=== PATIENT | female | born 1930 | race Caucasian/White ===

== ENCOUNTER 2017-11-09 18:15 | Observation (INO) | payer OTHER, BC ==
--- NOTE | 2017-11-09 19:20 | EDPHY ---
H & P Time Seen by Provider: 11/09/17 19:19 HPI/ROS: CHIEF COMPLAINT: Headache HISTORY OF PRESENT ILLNESS: The patient is had a headache for 10 days and this is her 3rd emergency department visit. She was most recently admitted at [facility] according to the daughters on Monday night discharge Monday. She had a negative head CT but a slightly elevated CRP and sedimentation rate. The she got occipital nerve block which helped for a short while but now she has an 11/10 headache today and was screaming and severe pain at home. The headache is on the left parietal area and severe does not radiate. Not associated with fever or stiff neck. Is associated with photophobia and nausea and worse with light. Also worse with any movement. REVIEW OF SYSTEMS: Eye: no change in vision or double vision ENT: no sore throat or earache Cardiac: no chest pain or syncope Pulmonary: Little bit of a cough but no shortness of breath Abdomen: Nausea but no vomiting or diarrhea Musculoskeletal: Chronic back pain but no neck pain Skin: no rash Neuro: HPI Constitutional: no fever : no urinary symptoms A comprehensive 10 point review of systems is otherwise negative aside from elements mentioned in the history of present illness. PAST MEDICAL HISTORY: Hysterectomy and colon cancer Social history: Here with her 2 daughters who are visiting from out of town staying at a hotel General Appearance: Alert and conversant, cooperative. Eyes: No scleral icterus. Pupils equal and reactive extraocular motion intact. She does not have any temporal artery or forehead tenderness to palpation. ENT, Mouth: Normal mucous membranes. Normal tympanic membranes and normal pharynx. Respiratory: Normal respiratory effort, breath sounds equal, lungs are clear to auscultation. Cardiovascular: Regular rate and rhythm. Gastrointestinal: Abdomen is soft and non tender. Neurological: Alert, face symmetric, normal motor and sensory in extremities. Skin: Warm and dry, no rashes. Musculoskeletal: She does not have any neck stiffness. Psychiatric: Not agitated. Emergency Department course/MDM: Saturation noted low at 85% but the patient does not really have any respiratory symptoms except for mild cough. Plan to treat her headache with Reglan 10 mg IV and Benadryl 25 mg IV and dexamethasone 10 mg IV. I-STAT will consider nonsteroidals if normal creatinine. Head CT and CT angiography of the head and neck, lumbar puncture discussed and consented. I do not see any evidence of zoster. Chest x-ray and CBC and chemistry. Daughters relate elevated CRP and sed rate but the patient does not have tenderness on her temples, I think clinically temporal arteritis would be unlikely. No visual symptoms. 2114: LP unsuccessful. She does not have meningeal signs. Think this can safely be deferred till tomorrow. Recommended admission for intractable recurrent headache, possible neurology consultation. At this time her headache is improved but not gone. Smoking Status: Never smoked Constitutional: Initial Vital Signs Temperature (C) 36.6 C 11/09/17 18:28 Heart Rate 92 11/09/17 18:28 Respiratory Rate 18 11/09/17 18:28 Blood Pressure 120/85 H 11/09/17 18:28 O2 Sat (%) 85 L 11/09/17 18:28 O2 Delivery Mode Nasal Cannula O2 (L/minute) 2 Allergies/Adverse Reactions: No Known Allergies Allergy (Verified 11/09/17 18:27) Home Medications: Medication Instructions Recorded Acetaminophen [Tylenol ES 500 mg 500 - 1,000 mg PO Q6 PRN 11/09/17 (*)] Aspirin [Aspirin 81mg (*)] 81 mg PO DAILY PRN 11/09/17 Medical Decision Making - Diagnostics Imaging Results: Imaging Impressions Chest X-Ray 11/09/17 19:43 Impression: Possibly a small posterior infiltrate with adjacent tiny pleural effusion. Results discussed with Dr. Tex Lizama at 8:[address] 11/09/17 20:02 Impression: No source for left parietal headache identified. A message was left for Dr. Lizama at 8:54 PM General information for patients regarding this examination can be found at [email or web address]. If you have questions or comments about this report, please contact me at (hospital) or [phone] (cell). Head CTA 11/09/17 20:02 Impression: Normal CT angiogram of the brain. 2. CT Angiography of the Neck (With Contrast) Clinical Indications: Severe left parietal headache x10 days, worsening Technique: During IV administration of 85 mL of Isovue-370 intravenously, helical multidetector data acquisition was obtained from the upper thorax cephalad through the skull base. The thinly collimated data were manipulated in multiple projections on the 3D computer workstation by the radiologist. Dose reduction techniques were utilized. Findings: Carotid bifurcations are widely patent. Both vertebral arteries are open, the left is dominant, and both are patent to the normal basilar artery. No evidence of occlusion, dissection, hemodynamically significant stenosis, or ulceration. There are tiny bilateral carotid bifurcation calcified plaques. Incidentally noted is degenerative disk disease between C3 and C6. Impression: Normal. Note: All stenoses are calculated using NASCET Criteria. Results called and discussed with Dr. Burton, at 11/09/2017 21:42 General information for patients regarding this examination can be found at [employer]. If you have questions or comments about this report, please contact me at (hospital) or [phone] (cell). Neck CTA 11/09/17 20:02 Impression: Normal CT angiogram of the brain. 2. CT Angiography of the Neck (With Contrast) Clinical Indications: Severe left parietal headache x10 days, worsening Technique: During IV administration of 85 mL of Isovue-370 intravenously, helical multidetector data acquisition was obtained from the upper thorax cephalad through the skull base. The thinly collimated data were manipulated in multiple projections on the 3D computer workstation by the radiologist. Dose reduction techniques were utilized. Findings: Carotid bifurcations are widely patent. Both vertebral arteries are open, the left is dominant, and both are patent to the normal basilar artery. No evidence of occlusion, dissection, hemodynamically significant stenosis, or ulceration. There are tiny bilateral carotid bifurcation calcified plaques. Incidentally noted is degenerative disk disease between C3 and C6. Impression: Normal. Note: All stenoses are calculated using NASCET Criteria. Results called and discussed with Dr. Burton, at 11/09/2017 21:42 General information for patients regarding this examination can be found at [employer]. If you have questions or comments about this report, please contact me at [phone](hospital) or [phone] (cell). Chest x-ray personally interpreted 1999 shows some interstitial markings but no CHF or infiltrates. Possible infiltrate laterally per Rasheed at 2010. Imaging: Discussed imaging studies w/ secretary of police Radiologist, I viewed and interpreted images myself Procedures: Procedure: Lumbar puncture attempt Indication: headache Risks benefits and alternatives to the procedure were discussed including but not limited to infection, headache, bleeding, and neurologic damage. Consent was obtained. The patient was prepped and draped in the usual sterile fashion. A time out was completed. The entry site was anesthetized with 1% lidocaine and a lumbar puncture was attempted with a 23-gauge spinal needle. Procedure was not successful, no CSF was obtained. There were no complications. The procedure was performed by myself. Differential Diagnosis: Differential diagnosis considered for headache including but not limited to subarachnoid hemorrhage, migraine headache, tension headache and infectious causes such as meningitis, pharyngitis and sinusitis. Consult/Admit Bed Type: [place] [address] - Data Points Laboratory Results: Laboratory Results 11/09/17 19:50 11/09/17 19:50 11/09/17 11/09/17 11/09/17 19:57 19:50 19:50 WBC 7.40 10^3/uL 10^3/uL (3.80-9.50) RBC 3.92 10^6/uL L 10^6/uL (4.18-5.33) Hgb 12.7 g/dL g/dL (12.6-16.3) POC Hgb 12.2 gm/dL L gm/dL (12.6-16.3) Hct 38.2 % % (38.0-47.0) POC Hct 36 % L % (38-47) MCV 97.4 fL fL (81.5-99.8) MCH 32.4 pg pg (27.9-34.1) MCHC 33.2 g/dL g/dL (32.4-36.7) RDW 13.3 % % (11.5-15.2) Plt Count 374 10^3/uL 10^3/uL (150-400) MPV 8.8 fL fL (8.7-11.7) Neut % (Auto) 72.1 % % (39.3-74.2) Lymph % (Auto) 14.1 % L % (15.0-45.0) [place] % (Auto) 9.6 % % (4.5-13.0) Eos % (Auto) 2.3 % % (0.6-7.6) Baso % (Auto) 0.4 % % (0.3-1.7) Nucleat RBC Rel Count 0.0 % % (0.0-0.2) Absolute Neuts (auto) 5.34 10^3/uL 10^3/uL (1.70-6.50) Absolute Lymphs (auto) 1.04 10^3/uL 10^3/uL (1.00-3.00) Absolute Monos (auto) 0.71 10^3/uL 10^3/uL (0.30-0.80) Absolute Eos (auto) 0.17 10^3/uL 10^3/uL (0.03-0.40) Absolute Basos (auto) 0.03 10^3/uL 10^3/uL (0.02-0.10) Absolute Nucleated RBC 0.00 10^3/uL 10^3/uL (0-0.01) Immature Gran % 1.5 % H % (0.0-1.1) Immature Gran # 0.11 10^3/uL H 10^3/uL (0.00-0.10) POC Sodium 142 mEq/L mEq/L (135-145) Sodium 140 mEq/L mEq/L (135-145) POC Potassium 3.7 mEq/L mEq/L (3.3-5.0) Potassium 3.9 mEq/L mEq/L (3.3-5.0) POC Chloride 107 mEq/L mEq/L (97-110) Chloride 107 mEq/L mEq/L (97-110) Carbon Dioxide 23 mEq/l mEq/l (22-31) Anion Gap 10 mEq/L mEq/L (8-16) POC BUN 20 mg/dL mg/dL (7-23) BUN 20 mg/dL mg/dL (7-23) Creatinine 0.7 mg/dL mg/dL (0.6-1.0) POC Creatinine 0.7 mg/dL mg/dL (0.6-1.0) Estimated GFR > 60 Glucose 109 mg/dL H mg/dL (70-100) POC Glucose 117 mg/dL H mg/dL (70-100) Calcium 9.6 mg/dL mg/dL (8.5-10.4) Medications Given: Discontinued Medications Dexamethasone (Decadron Injection) 10 mg IVP EDNOW ONE Stop: 11/09/17 19:42 Last Admin: 11/09/17 20:02 Dose: 10 mg Diphenhydramine HCl (Benadryl Injection) 25 mg IVP EDNOW ONE Stop: 11/09/17 19:42 Last Admin: 11/09/17 20:02 Dose: 25 mg Metoclopramide HCl (Reglan Injection) 10 mg IVP EDNOW ONE Stop: 11/09/17 19:41 Last Admin: 11/09/17 20:02 Dose: 10 mg Point of Care Test Results: Chemistry 11/09/17 19:57 POC Sodium 142 mEq/L mEq/L (135-145) POC Potassium 3.7 mEq/L mEq/L (3.3-5.0) POC Chloride 107 mEq/L mEq/L (97-110) POC BUN 20 mg/dL mg/dL (7-23) POC Creatinine 0.7 mg/dL mg/dL (0.6-1.0) POC Glucose 117 mg/dL H mg/dL (70-100) ISTAT H&H 11/09/17 19:57 POC Hgb 12.2 gm/dL L gm/dL (12.6-16.3) POC Hct 36 % L % (38-47) Departure - Departure Disposition: [facility] Acute Clinical Impression: Acute headache Qualifiers: Headache type: unspecified Intractability: intractable Qualified Code(s): R51 - Headache Condition: Good
[2017-11-09] MEDS ORDERED: METOCLOPRAMIDE 10 MG/2 ML VIAL IVP ONE (19:40)
[2017-11-09] MEDS ORDERED: DEXAMETHASONE 10 MG/ML VIAL IVP ONE (19:41)
[2017-11-09 20:11] LABS: PLATELET COUNT 374 10^3/uL (150-400)
[2017-11-09] MEDS ORDERED: IOPAMIDOL (ISOVUE 370) 100 ML BTL IV ONE (20:23)
[2017-11-09] MEDS ORDERED: ONDANSETRON DISINTEGRATING 4 MG TAB PO PRN (21:20)
[2017-11-09] MEDS ORDERED: ONDANSETRON 4 MG/2 ML VIAL IVP PRN (21:20)
[2017-11-09] MEDS ORDERED: ACETAMINOPHEN 325 MG TAB PO PRN (21:20)
--- NOTE | 2017-11-10 01:23 | PDGENHP ---
History and Physical - Chief Complaint Headache - History of Present Illness 87 yo F w/ minimal PMHx presents with AMAYA. Patient has had ongoing headache issues for about 10 days. This is her 3rd ER visit for the same and she was recently admitted to [facility] for treatment of the same. Per family's report she had a normal CT scan of the head while there but they did find elevated ESR/CRP. She came in to the ED complaining of 11/10 AMAYA in the L parietal area with nausea and photophobia. At the time of my evaluation patient is pain free after dexamethasone, Benadryl, and Reglan. She denies visual symptoms, jaw claudication, or any other neurologic symptoms. She denies prior hx of migraine headaches. Case discussed with Dr. Pimentel, previous records reviewed. History Information - Allergies/Home Medication List Allergies/Adverse Reactions: No Known Allergies Allergy (Verified 11/09/17 18:27) Home Medications: Acetaminophen [Tylenol ES 500 mg (*)] 500 - 1,000 mg PO Q6 PRN 11/09/17 [Last Taken 11/09/17 12:00] Aspirin [Aspirin 81mg (*)] 81 mg PO DAILY PRN 11/09/17 [Last Taken 11/09/17 19: 00] I have personally reviewed and updated: family history, medical history - Past Medical History cancer (Colon cancer) - Surgical History Reports: colectomy - Family History Additional family history: Denies family hx of migraines - Social History Smoking Status: Never smoked Review of Systems Review of Systems: ROS: 10pt was reviewed & negative except for what was stated in HPI & below Physical Exam Physical Exam: Temp Pulse Resp BP Pulse Ox 36.9 C 72 16 117/87 H 91 L 11/09/17 22:18 11/09/17 22:18 11/09/17 22:18 11/09/17 22:18 11/09/17 22:18 O2 (L/minute) 2 Constitutional: no apparent distress, not in pain Eyes: PERRL, EOMI Ears, Nose, Mouth, Throat: moist mucous membranes, no oral mucosal ulcers Cardiovascular: regular rate and rhythym, no murmur, rub, or gallop Respiratory: no respiratory distress, clear to auscultation Gastrointestinal: normoactive bowel sounds, soft, non-tender abdomen Skin: warm, normal color Musculoskeletal: full muscle strength, no muscle tenderness Neurologic: AAOx3, CN II-XII Intact Psychiatric: interacting appropriately, not anxious Lab Data & Imaging Review 11/09/17 19:50 11/09/17 19:50 WBC 7.40 10^3/uL (3.80-9.50) 11/09/17 19:50 RBC 3.92 10^6/uL (4.18-5.33) L 11/09/17 19:50 Hgb 12.7 g/dL (12.6-16.3) 11/09/17 19:50 POC Hgb 12.2 gm/dL (12.6-16.3) L 11/09/17 19:57 Hct 38.2 % (38.0-47.0) 11/09/17 19:50 POC Hct 36 % (38-47) L 11/09/17 19:57 MCV 97.4 fL (81.5-99.8) 11/09/17 19:50 MCH 32.4 pg (27.9-34.1) 11/09/17 19:50 MCHC 33.2 g/dL (32.4-36.7) 11/09/17 19:50 RDW 13.3 % (11.5-15.2) 11/09/17 19:50 Plt Count 374 10^3/uL (150-400) 11/09/17 19:50 MPV 8.8 fL (8.7-11.7) 11/09/17 19:50 Neut % (Auto) 72.1 % (39.3-74.2) 11/09/17 19:50 Lymph % (Auto) 14.1 % (15.0-45.0) L 11/09/17 19:50 [place] % (Auto) 9.6 % (4.5-13.0) 11/09/17 19:50 Eos % (Auto) 2.3 % (0.6-7.6) 11/09/17 19:50 Baso % (Auto) 0.4 % (0.3-1.7) 11/09/17 19:50 Nucleat RBC Rel Count 0.0 % (0.0-0.2) 11/09/17 19:50 Absolute Neuts (auto) 5.34 10^3/uL (1.70-6.50) 11/09/17 19:50 Absolute Lymphs (auto) 1.04 10^3/uL (1.00-3.00) 11/09/17 19:50 Absolute Monos (auto) 0.71 10^3/uL (0.30-0.80) 11/09/17 19:50 Absolute Eos (auto) 0.17 10^3/uL (0.03-0.40) 11/09/17 19:50 Absolute Basos (auto) 0.03 10^3/uL (0.02-0.10) 11/09/17 19:50 Absolute Nucleated RBC 0.00 10^3/uL (0-0.01) 11/09/17 19:50 Immature Gran % 1.5 % (0.0-1.1) H 11/09/17 19:50 Immature Gran # 0.11 10^3/uL (0.00-0.10) H 11/09/17 19:50 POC Sodium 142 mEq/L (135-145) 11/09/17 19:57 Sodium 140 mEq/L (135-145) 11/09/17 19:50 POC Potassium 3.7 mEq/L (3.3-5.0) 11/09/17 19:57 Potassium 3.9 mEq/L (3.3-5.0) 11/09/17 19:50 POC Chloride 107 mEq/L (97-110) 11/09/17 19:57 Chloride 107 mEq/L (97-110) 11/09/17 19:50 Carbon Dioxide 23 mEq/l (22-31) 11/09/17 19:50 Anion Gap 10 mEq/L (8-16) 11/09/17 19:50 POC BUN 20 mg/dL (7-23) 11/09/17 19:57 BUN 20 mg/dL (7-23) 11/09/17 19:50 Creatinine 0.7 mg/dL (0.6-1.0) 11/09/17 19:50 POC Creatinine 0.7 mg/dL (0.6-1.0) 11/09/17 19:57 Estimated GFR > 60 11/09/17 19:50 Glucose 109 mg/dL (70-100) H 11/09/17 19:50 POC Glucose 117 mg/dL (70-100) H 11/09/17 19:57 Calcium 9.6 mg/dL (8.5-10.4) 11/09/17 19:50 Imaging Review: Imaging Impressions Chest X-Ray 11/09/17 19:43 Impression: Possibly a small posterior infiltrate with adjacent tiny pleural effusion. Results discussed with Dr. Tex Lizama at 8:[address] 11/09/17 20:02 Impression: No source for left parietal headache identified. A message was left for Dr. Lizama at 8:54 PM General information for patients regarding this examination can be found at [employer]. If you have questions or comments about this report, please contact me at (hospital) or [phone] (cell). Head CTA 11/09/17 20:02 Impression: Normal CT angiogram of the brain. 2. CT Angiography of the Neck (With Contrast) Clinical Indications: Severe left parietal headache x10 days, worsening Technique: During IV administration of 85 mL of Isovue-370 intravenously, helical multidetector data acquisition was obtained from the upper thorax cephalad through the skull base. The thinly collimated data were manipulated in multiple projections on the 3D computer workstation by the radiologist. Dose reduction techniques were utilized. Findings: Carotid bifurcations are widely patent. Both vertebral arteries are open, the left is dominant, and both are patent to the normal basilar artery. No evidence of occlusion, dissection, hemodynamically significant stenosis, or ulceration. There are tiny bilateral carotid bifurcation calcified plaques. Incidentally noted is degenerative disk disease between C3 and C6. Impression: Normal. Note: All stenoses are calculated using NASCET Criteria. Results called and discussed with Dr. Burton, at 11/09/2017 21:42 General information for patients regarding this examination can be found at [employer]. If you have questions or comments about this report, please contact me at (hospital) or [phone] (cell). Neck CTA 11/09/17 20:02 Impression: Normal CT angiogram of the brain. 2. CT Angiography of the Neck (With Contrast) Clinical Indications: Severe left parietal headache x10 days, worsening Technique: During IV administration of 85 mL of Isovue-370 intravenously, helical multidetector data acquisition was obtained from the upper thorax cephalad through the skull base. The thinly collimated data were manipulated in multiple projections on the 3D computer workstation by the radiologist. Dose reduction techniques were utilized. Findings: Carotid bifurcations are widely patent. Both vertebral arteries are open, the left is dominant, and both are patent to the normal basilar artery. No evidence of occlusion, dissection, hemodynamically significant stenosis, or ulceration. There are tiny bilateral carotid bifurcation calcified plaques. Incidentally noted is degenerative disk disease between C3 and C6. Impression: Normal. Note: All stenoses are calculated using NASCET Criteria. Results called and discussed with Dr. Burton, at 11/09/2017 21:42 General information for patients regarding this examination can be found at [email or web address]. If you have questions or comments about this report, please contact me at (hospital) or [phone] (cell). Visualized and Interpreted Chest x-ray results: Yes Chest X-Ray results: other (Possible small posterior infiltrate) Assessment & Plan Assessment: 87 yo F p/w recurrent headache. Plan: 1. Headache - Unclear etiology; does have some migraine features noting duration , photophobia, and associated nausea. This is her 3rd ER visit and 2nd hospitalization for the same over the last [address] Head and CTA Head/Neck performed in the ED did not show any abnormalities that could explain the pain. She denies any infectious symptoms or neck stiffness. She denies visual disturbance and jaw claudication. - Admit for observation - Neurology consult placed - Will defer LP for now noting patient has no infectious symptoms currently - Will check ESR to screen for temporal cell arteritis (ESR commonly >100 with this) Diet - Regular Code - Full Ppx - SCDs Dispo - Admit under observation status
[2017-11-10 08:12] VITALS: BP 117/78
--- NOTE | 2017-11-10 09:51 | NEUROPROG ---
Assessment: HOSPITAL NEUROLOGY CONSULT REQUESTING: Errol Lazcano MD REASON: headache HPI: 87 year old woman with a history of dementia, remote colon cancer s/p colectomy , chronic low back pain presented to our ED yesterday with a reported headache. History is mainly obtained from records review, as patient is not complaining of a headache today and denies ever having a headache in the past. She has reportedly been experiencing episodic HAs since 11/01 manifest as left occipitoparietal sharp pains. She went to [facility] ED on 11/[address] head/CT head/neck. She was given IV narcotic analgesic with reported resolution of her AMAYA and discharged home. She represented to their ED on 11/07 with similar complaints. An occipital nerve block was done with varying reports of effectiveness. Labs were obtained indicating elevated ESR ( 40) and CRP (163). Exam did reveal focal tenderness over the left occipital region. Given the focal nature reproduced with tenderness, not further investigation was explored including LP and temporal artery biopsy. Headache had improved and she was discharged. However, she presented to our ED yesterday reportedly because she was screaming in pain at home from her headache. There was report of photophobia, nausea, worsening headache with head movement. Patient was evaluated again with CT head and CTA head/neck, which were again unremarkable for an acute/evolving process. She was given dexamethasone, metoclopramide and diphenhydramine and the headache resolved. She has not experienced any pain overnight per nursing report, slept well and has required no analgesics since her ER stay. ESR and CRP were rechecked and remain elevated. This morning on my interview she reports no pain. She thinks she is here for an epidural injection for her low back. She tells me she has never experienced head pain. She states she thinks she may be here because she's trying to move to "an old folks home" in [place] - she reports getting into an argument with her boyfriend and he does not want her back at home (note this was reported at [facility] as well). She denies any jaw claudication, fevers, joint pain, rashes, joint stiffness, fatigue (no prior reports with prior visits to outside hospitals of this either) . ROS: As per the HPI, otherwise a complete 12 point ROS was performed and is negative ALLERGIES AND MEDS: As recorded in the EMR - reviewed and reconciled PFSH: As per the intake H&P by Dr. Lazcano from today EXAM: VS reviewed in EMR GEN: WDWN laying in NAD HEENT: NCAT, sclera anicteric, conjunctiva not injected, MMM, oropharynx clear, no scalp tenderness NECK: supple, nontender, no meningismus CV: RRR s1 s2 wo m/r/c/g. Carotid pulses 2+ wo bruit INTEG: no rashes MSK: no joint swelling/redness/tenderness NEURO: MS: awake, alert, oriented to self and state only - disoriented to date, situation, city/site. Speech nondysarthric. No language disturbance. Follows commands. Attends to both sides. Episodic memory impairment evident on casual conversation. Mood euthymic. Good fund of knowledge. CN: pupils 3mm round and reactive. Unable to visualize fundi. VFF. Primary gaze centered. Full ocular motility. Facial sensation preserved. Face symmetric. Hearing grossly intact to finger rub. Palatoglossal movements intact. Shoulder shrug and head turn strong. MOTOR: normal bulk/tone. No adventitial movements. Generalized weakness at 4+/ 5 in all groups. SENSORY: intact/symmetric LT/PP in all extremities. No extinction. COORD: no ataxia FN/HS. Sonia labored. REFLEX: plantars down. No clonus. Absent ankle jerks, other DTRS 2/4. GAIT: deferred to PT safety eval DATA REVIEW: Labs reviewed in EMR PERSONALLY INTERPRETED RESULTS AND DATA: CT head wo - nothing acute/evolving. Global volume loss a bit more prominent in the temporal lobes, signal attenuation in the white matter most likely reflective of chronic microvascular ischemic change. CTA head/neck - no hemodynamically significant stenoses, no aneurysm or other vascular anomaly. IMPRESSION AND RECOMMENDATIONS: // HEADACHE - RESOLVED // DEMENTIA Patient with reports of left occipitoparietal sharp pains which have been somewhat episodic. Could represent occipital neuralgia. She denies any pain today and she does not have any memory of ever having a headache. She has been comfortable overnight without any pain. Semiology of AMAYA doesn't sound like GCA/ TA, even with elevated inflammatory markers which are nonspecific. She has no scalp tenderness, no fevers, no jaw claudication, no abnormality on CBC, no joint redness/tenderness and no rashes. Exam is nonfocal. Serial imaging has been unremarkable. Given headache has resolved, I think she can be discharged and follow up with her PCP and rheumatology to assess her elevated inflammatory markers. Follow up with neurology in 1-2 weeks for reassessment. Case discussed with Dr. Ventura of [facility] internal medicine team. Objective: Vital Signs Temp Pulse Resp BP Pulse Ox 36.6 C 72 18 117/78 90 L 11/10/17 08:11 11/10/17 08:11 11/10/17 08:11 11/10/17 08:11 11/10/17 08:11 Laboratory Results 11/10/17 08:00 11/09/17 11/10/17 11/11/17 05:59 05:59 05:59 Intake Total 200 Balance 200 Allergies/Adverse Reactions: No Known Allergies Allergy (Verified 11/09/17 18:27)
--- NOTE | 2017-11-10 10:50 | ASMTCMCOM ---
CM Note CM Note Notes: Met with pt and dtr My. Dtr has already contacted [facility] for short term SNF placement. Faxed [facility] a referral. Dtr stated that plans depends on findngs and treatment. Cm to follow. Date Signed: 11/10/2017 10:49 AM Electronically Signed By:Catarina Marie LCSW
[2017-11-10] MEDS ORDERED: IBUPROFEN 600 MG TAB PO PRN (14:02)
--- NOTE | 2017-11-10 14:02 | HOSPPROG ---
Hospitalist Progress Note Assessment/Plan: 87 yo F w AMAYA, likely trigeminal neuralgia resolved home today now dnr see dc summary Subjective: case d/w dr velarde of neurology. AMAYA resolved. now DNR Objective: Vital Signs Temp Pulse Resp BP Pulse Ox 36.6 C 72 16 117/78 86 L 11/10/17 08:11 11/10/17 08:11 11/10/17 12:27 11/10/17 08:11 11/10/17 12:27 Laboratory Results 11/10/17 08:00 11/09/17 11/10/17 11/11/17 05:59 05:59 05:59 Intake Total 200 Balance 200 - Physical Exam Constitutional: no apparent distress, appears nourished Eyes: PERRL, anicteric sclera Ears, Nose, Mouth, Throat: moist mucous membranes, hearing normal Cardiovascular: regular rate and rhythym, no murmur, rub, or gallop Respiratory: no respiratory distress, no rales or rhonchi Gastrointestinal: normoactive bowel sounds, soft, non-tender abdomen Genitourinary: no bladder fullness, sabillon in urethra Skin: warm, normal color Musculoskeletal: full muscle strength Neurologic: AAOx3 ICD10 Worksheet Patient Problems: Problems Problem Status Onset Acute headache Acute
--- NOTE | 2017-11-10 14:15 | PDIAF ---
- Diagnosis Diagnosis: occipital neuralgia Code Status: Do Not Resuscitate - Medication Management Discharge Medications: Medications to Continue on Transfer Acetaminophen [Tylenol ES 500 mg (*)] 500 - 1,000 mg PO Q6 PRN 11/09/17 [Last Taken 11/09/17 12:00] Aspirin [Aspirin 81mg (*)] 81 mg PO DAILY PRN 11/09/17 [Last Taken 11/09/17 19: 00] Ibuprofen [Motrin (*)] 600 mg PO BID PRN tab 11/10/17 [Last Taken Unknown] Discharge Medications: Refer to the Discharge Home Medication list for PRN reason. - Orders Services needed: Home Care, Registered Nurse, Certified Waiter/Waitress Second Class, Master Tar Kettle Runner, Physical Therapy, Occupational Therapy Home Care Face to Face: I certify that this patient was under my care and that I had the required [id number] encounter meeting the encounter requirements on the discharge day. My findings support the fact that the patient is homebound as defined in Home Care Face to Face Continued: CMS Chapter 7 Medicare Benefits Manual 30.1.1 , The condition of the patient is such that there exists a normal inability to leave home and consequently, leaving home would require a considerable and taxing effort. Diet Recommendation: no restrictions on diet - Follow Up Care Current Providers and Referrals: AMPARO MARTINEZ [Other] - As per Instructions
--- NOTE | 2017-11-10 14:16 | PDHOMEO2F ---
Home Oxygen Face to Face Home Orders: I certify that a physician or a nurse practitioner or physician's promotions assistant has had a [id number] encounter with this patient on the date of this order due to the diagnosis listed, which relates to the primary reason the patient requires home oxygen. Alternative treatments have been tried, or considered, and deemed ineffective. It is anticipated that supplemental oxygen will result in improvement with treatment. Home oxygen qualifying diagnosis: copd SpO2 on room air (%): 86 Frequency of home oxygen needed: continuous Home oxygen liters per minute: 2 Home oxygen delivery device: nasal cannula Concentrator: No E-tanks for mobility and back up: Yes If ordering portable O2, is the patient mobile in the home?: Yes I certify that, based on these findings, the home oxygen is medically necessary for this patient for the following length of time. Length of time home oxygen needed: 99 years
--- NOTE | 2017-11-10 14:42 | ASMTCMCOM ---
CM Note CM Note Notes: Pt ready for DC today. [facility] has accepted. Final orders faxed. Dtrs will provide transport Date Signed: 11/10/2017 02:41 PM Electronically Signed By:Catarina Marie LCSW
--- NOTE | 2017-11-10 14:45 | ASMTLACE ---
LACE Length of stay for Answers: Less than 1 day current admission Acuity / Level of Answers: No Care: Did the patient have an inpatient admission? Comorbidities - select Answers: Any tumor (including all that apply lymphoma or leukemia) Opioid dependence / Chronic pain # of Emergency department Answers: 1-2 visits in the last 6 months Score: 7 Date Signed: 11/10/2017 02:44 PM Electronically Signed By:Catarina Marie LCSW
--- NOTE | 2017-11-10 14:45 | GDS ---
[f rep st] DISCHARGE SUMMARY DISCHARGE DIAGNOSES: 1. Headache, likely secondary to occipital neuralgia. 2. Hypoxemic respiratory failure secondary to probable chronic obstructive pulmonary disease. HISTORY AND HOSPITAL COURSE: Please see admission history and physical by Dr. Errol Lazcano. The patient presented with headache. She had a CT angio that was normal of the head. She had a CT angio of the neck that was normal. She had a noncontrast head CT that was unremarkable. There was a failed attempt at lumbar puncture. The patient is afebrile without meningismus or elevated white bl ood cell count. She was alert and oriented, did not seem much like a patient with meningitis. She d id not have peripheral leukocytosis. She received steroids, Reglan, Benadryl with improvement in her headache. She was seen by Neurology who felt it was consistent with an occipital neuralgia. The bradly colbert had had a nerve block done at [facility] earlier in the week. Her headache resolv ed without further intervention other than what has been mentioned. She was noted to be 86% on room air. She has a history of a great deal of secondhand smoke exposure in her life. Chest x-ray suggested possible pneumonia by the radiologist. I reviewed this and feel that it is not consistent with her clinical scenario, so no antibiotics were prescribed. She is sche duled to move into the [facility] today so she is discharged to there. Of note, the patient's code stat us is do not resuscitate after discussion. /[id number]/MODL
--- NOTE | 2017-11-11 10:22 | ASDISCHSUM ---
Discharge Information Plan Status: Medically Cleared to Leave: Discharge Date:11/10/2017 04:23 PM CM D/C Disposition: ADT D/C Disposition:Residential Facility Projected Discharge Date:11/12/2017 11:00 AM Transportation at D/C: Discharge Delay Reason: Follow-Up Date:11/12/2017 11:00 AM Discharge Slot: Final Diagnosis: Placement Information Referral Type:*Longterm/SNF Referral ID:[id number] Provider Name:[facility] Address 1:[address] Address 2: City:[place] Selection Factors: State:[place] Patient Contact Information Contact Name:VIVIANA Relationship:Daughter Address:[address] City:[place] Alternate Phone: State/Zip Code:[place] [address] Email: Financial Information Financial Class:Medicare Primary Plan Desc:MEDICARE OUTPATIENT Primary Plan Number:[id number] Secondary Plan Desc: OUT OF [facility] Secondary Plan Number:[id number] Assessment Information LACE LACE Length of stay for Answers: Less than 1 day current admission Acuity / Level of Answers: No Care: Did the patient have an inpatient admission? Comorbidities - select Answers: Any tumor (including all that apply lymphoma or leukemia) Opioid dependence / Chronic pain # of Emergency department Answers: 1-2 visits in the last 6 months Score: 7 Date Signed: 11/10/2017 02:44 PM Electronically Signed By:Catarina Marie LCSW [facility] CM Progress Note CM Note CM Note Notes: Met with pt and dtr My. Dtr has already contacted [facility] for short term SNF placement. Faxed [facility] a referral. Dtr stated that plans depends on findngs and treatment. Cm to follow. Date Signed: 11/10/2017 10:49 AM Electronically Signed By:Catarina Marie LCSW [facility] CM Progress Note CM Note CM Note Notes: Pt ready for DC today. [facility] has accepted. Final orders faxed. Dtr[facility] will provide transport Date Signed: 11/10/2017 02:41 PM Electronically Signed By:Catarina Marie LCSW Intervention Information Intervention Type:*ST-Signed Date of Service:11/10/2017 10:15 AM Patient Type:Observation Staff Member:Rachael Cheney Hours: Discipline: Severity: Comment:
== END 2017-11-10 16:23 ==
LOC: F1N 21:58
PROVIDERS: ADMIT Internal Medicine; ATTEND Internal Medicine
DX: M54.81 Occipital neuralgia (principal); J44.9 Chronic obstructive pulmonary disease, unspecified; J96.91 Respiratory failure, unspecified with hypoxia; Z77.22 Contact with and (suspected) exposure to environmental tobacco smoke (acute) (chronic); Z66 Do not resuscitate
CPT/HCPCS: 70450; 70496; 70498; 71046; G0378; J1100; J1200; J2765; Q9967; 82435-PO; 82565-PO; 82947-PO; 84132-PO; 84295-PO; 84520-PO; 85014-PO; 96374